=== PATIENT | female | born 1945 | race Caucasian/White ===

== ENCOUNTER → 2017-08-06 | Emergency (ER) | payer OTHER ==
[~2017-08-06] VITALS: Ht 154.9 cm; Wt 74.8 kg
[~2017-08-06] MED LIST: AMLODIPINE BESYL5 MG; CALTRATE 600+D1 EAC1; CENTRUM WOMEN1 EACH; GLUCOSAMINE HC500 MG; METFORMIN HCL500 MG; SIMVASTATIN20 MG; VITAMIN D31000 UNI1
== END | disposition home or self-care (01) ==
LOC: ER 12:54
DX: M54.5 Low back pain (principal)

== ENCOUNTER 2017-11-17 11:02 | Outpatient (CLI) | payer OTHER ==
[~2017-11-17 11:02] MED LIST changes: +AMIODARONE HCL100 MG PO; +NEURONTIN300 MG PO
== END 2017-11-17 11:03 | disposition home or self-care (01) ==
LOC: RAD 11:02
DX: I10 Essential (primary) hypertension (principal)

== ENCOUNTER → 2017-11-18 | Day surgery (SDC) | payer OTHER | END | disposition home or self-care (01) | LOC: CIR.AMB 05:45 | DX: C50.412 Malignant neoplasm of upper-outer quadrant of left female breast (principal) ==

== ENCOUNTER 2019-11-26 09:29 | Outpatient (CLI) | payer OTHER | END 2019-11-26 09:35 | disposition home or self-care (01) | LOC: RX STUDY 09:29 | DX: R10.13 Epigastric pain (principal) ==

== ENCOUNTER 2020-09-26 05:40 | Day surgery (SDC) | payer OTHER ==
[~2020-09-26 05:40] MED LIST changes: +OXYCODONE HCL20 M1 PO; +ULTRAM50 MG PO; +ZESTRIL10 M1 PO
== END 2020-09-26 22:55 | disposition home or self-care (01) ==
LOC: CIR.AMB 05:40
PROVIDERS: ATTEND Surgery
DX: D05.12 Intraductal carcinoma in situ of left breast (principal); Z20.822 Contact with and (suspected) exposure to COVID-19

== ENCOUNTER 2020-10-04 00:10 | Emergency (ER) | payer OTHER ==
[~2020-10-04] VITALS: Ht 147.3 cm; Wt 66.7 kg
[2020-10-04] MEDS ORDERED: HIERRO (00:40)
[2020-10-04] MEDS ORDERED: CARAFATE1 GM PO (06:42)
== END 2020-10-04 06:46 | disposition home or self-care (01) ==
LOC: ER 00:10
DX: R07.89 Other chest pain (principal); R10.13 Epigastric pain; M54.89 Other dorsalgia; Z03.818 Encounter for observation for suspected exposure to other biological agents ruled out

== ENCOUNTER 2022-01-15 06:13 | Inpatient (IN) | payer OTHER ==
[~2022-01-15] VITALS: Ht 121.9 cm; Wt 67.1 kg
[~2022-01-15 06:13] MED LIST changes: +CARAFATE1 GM PO; +FOLIC ACID0.8 M1 PO; +GLIPIZIDE XL5 MG PO; +HIERRO; +HORIZANT600 MG PO; +PROTONIX40 MG PO
== END 2022-01-16 11:09 | disposition home or self-care (01) | DRG 822 ==
LOC: CIR.AMB 06:13 → OB/GYN 19:28 → O/R 19:28 → OB/GYN 19:37
PROVIDERS: ADMIT Surgery; ATTEND Surgery
PROC: 07T60ZZ Resection of Left Axillary Lymphatic, Open Approach (ICD-10-PCS; principal; 2022-01-15 09:00)
DX: C77.3 Secondary and unspecified malignant neoplasm of axilla and upper limb lymph nodes (principal); Z20.822 Contact with and (suspected) exposure to COVID-19